=== PATIENT | male | born 2000 ===

== ENCOUNTER 2018-05-30 09:04 | Emergency (ER) | payer SELFPAY ==
[~2018-05-30] VITALS: Ht 175.3 cm; Wt 59.1 kg
[2018-05-30 09:51] LABS: BASO # 0.1 (0.0-0.2); BASO % 1.4 % (0.0-2.0); EOS # 0.1 (0.0-0.7); GRAN # 3.3 (1.4-6.5); GRAN % 59.9 % (42.2-75.2); HEMATOCRIT 43.5 % (36.0-47.0); HEMOGLOBIN 15.3 g/dl (12.5-16.1); LYMPH # 1.5 (1.2-3.4); LYMPH % 26.8 % (20.0-51.0); MEAN CELL VOLUME 82 fl (80.0-95.0); MEAN CORPUSCULAR HEMOGLOBIN 29 pg (26.0-32.0); MEAN CORPUSCULAR HGB CONC 35 g/dl (33.0-37.0); MEAN PLATELET VOLUME 9.7 fl (7.4-10.4); MONO # 0.5 (0.1-0.6); MONO % 9.7 % (1.7-9.3); PLATELET COUNT 266 K/mm3 (130-400); RED BLOOD COUNT 5.28 M/mm3 (4.20-5.60); REDCELL DISTRIBUTION WIDTH-CV 12.2 % (11.5-14.5)
[2018-05-30 10:02] LABS: ALBUMIN 4.4 gm/dL (3.5-5.0); BILIRUBIN,TOTAL 1.4 mg/dL (0.0-1.0); CALCIUM 9.5 mg/dL (8.4-10.2); CREATININE, serum 0.94 mg/dL (0.66-1.25); POTASSIUM 3.7 mmol/L (3.4-5.0); TOTAL PROTEIN 7.4 gm/dL (6.4-8.2)
[2018-05-30 10:07] LABS: C-REACTIVE PROTEIN 0.5 mg/dL (0.0-0.9)
[2018-05-30 10:29] LABS: ERYTHROCYTE SEDIMENTATION RATE 1 mm/hr (0-15)
[2018-05-30 11:14] LABS: PROTHROMBIN TIME 11.8 SECONDS (9.7-12.8)
[2018-05-30 11:51] VITALS: BP 115/77; PULSE 89; TEMP 98.2
== END 2018-05-30 11:34 | disposition home or self-care (01) ==
LOC: COL.ER 09:04
PROVIDERS: Family Medicine
DX: K92.2 Gastrointestinal hemorrhage, unspecified (principal)